=== PATIENT | female | born 1960 | race Hispanic/Latino ===

== ENCOUNTER → 2024-08-28 | Outpatient (CLI) | payer MEDICARE ==
[2024-08-28] MEDS: REGADENOSON 0.4 MG/5 ML PF SYG IVP ONE (11:45)
--- NOTE | 2024-08-31 09:13 | HMCSR ---
APPROVED REPORT Height: 5 ft 0in Weight: 136 lbs TEST INDICATIONS Chest Pain The imaging protocol used to acquire images was Rest Tc-99m/stress Tc-99m 1 day Consent: The procedure was explained and understood by the patient. Informerd consent was witnessed Rosemarie Beasley RN First, low dose rest was performed then high dose stress. RESTING DATA: The resting ekg shows: NSR Rest SPECT myocardial perfusion imaging was performed in supine position 58 minutes following the int ravenous injection of 10 mCi of Tc-99 Sestamibi. Time of rest injection: 09:44: Date: 08/28/2024 Time of rest imagin:42: Date: 08/28/2024 PHARMACOLOGIC STRESS: Pharmacologic stress test was performed by injecting regadenoson 0.4 mg IV push followed by the intra venous injection of 32 mCi of Tc-99 Sestamibi. Time of stress injection: 11:10: Date: 08/28/2024 Time of stress imagin:23: Date: 08/28/2024 Heart Rate at time of stress injection: 55 bpm. Gated Stress SPECT was performed 73 minutes after stress injection. The images were gated to evaluate regional wall motion and calculate left ventricular ejection fracti on. STRESS DETAILS Reason for Termination: Infusion complete Stress Symptoms: Dyspnea Max HR Achieved: 98 bpm % of APMHR Achieved: 63 Max Blood Pressure: 167/77 mmHg Stress ECG: NSR, low amplitude T wave inversions inferolateral leads II, III, aVF, V4-6; resolved in recovery ST Change: No. Maximum ST Depression: 0 mm Study quality was good. Lung uptake was Normal. Artifact: No artifact LEFT VENTRICLE Size: The left ventricular size is normal. Systolic Function:The left ventricular systolic function is normal. Wall Motion: No regional wall motion abnormalities noted. The left ventricular ejection fraction was calculated to be 77%.TID = . LV PERFUSION The rest and stress images show normal perfusion. No transient ischemic dilation of the left ventricle. RV Size/Shape Not visualized. IMPRESSION Normal pharmacologic nuclear stress test. Global LV Function: Normal Stress ECG Summary: Low amplitude T wave inversions inferolateral after lexiscan injection, resolved into recovery LV Perfusion Summary: Normal LV Viability Summary: Normal Conclusion The stress and resting images show normal perfusion.
== END | disposition home or self-care (01) ==
LOC: SHCH 09:15
PROVIDERS: ATTEND Internal Medicine
DX: R07.9 Chest pain, unspecified (principal); R06.00 Dyspnea, unspecified
CPT/HCPCS: 78452; 93017; J2785; A9500 ×2